=== PATIENT | male | born 1975 | race Caucasian/White ===

== ENCOUNTER 2016-08-09 16:36 | Emergency (ER) | payer OTHER ==
--- NOTE | ~2016-08-09 | CR63 ---
[facility] A Service of [facility] & [facility] RADIOLOGY TEXT RESULTS PATIENT: NEAL HARTLEY LOCATION: CFTX : 77 UNIT #: [id number] AGE: [address]: Mikey Stapleton SEX: M ORDER DR: [id number] [facility] [address], [place] [address] [id number] MR#: [id number] Acc #: [id number] NAME: NEAL HARTLEY : 1975 SEX: M STUDY DATE/TIME: 08/09/2016 16:07 UNIT: [facility] ROOM: STUDY DESCRIPTION: CR Chest 2 View Attending Physician: Mikey Stapleton Ordering Physician: Ed Doctor [id number] [facility] Primary Care Physician: Primary Care Physician No MEDICAL IMAGING REPORT This report is preliminary unless electronic signature is present EXAM PA and lateral chest INDICATION 40-year male with cough and shortness of breath today. COMPARISON No comparisons. FINDINGS The lungs are well expanded and clear. Heart size is normal. Visualized osseous structures are unremarkable. IMPRESSION No active disease. Dictated by... Harshal Perez M.D. THIS IS AN ELECTRONICALLY VERIFIED REPORT Harshal Perez M.D. at 08/10/2016 8:24 AM Jv TD: 08/09/2016 20:02 JOB #: [id number] MEDICAL IMAGING REPORT Page 1 of 1 COPY
== END 2016-08-09 17:30 | disposition left against medical advice (07) ==
LOC: CED 16:36
DX: S30.1XXA Contusion of abdominal wall, initial encounter (principal); R05 Cough; I10 Essential (primary) hypertension; I25.2 Old myocardial infarction; Z98.890 Other specified postprocedural states; Z86.73 Personal history of transient ischemic attack (TIA), and cerebral infarction without residual deficits; F17.200 Nicotine dependence, unspecified, uncomplicated; X58.XXXA Exposure to other specified factors, initial encounter; Y92.9 Unspecified place or not applicable
CPT/HCPCS: 71020; 94640; 99283